=== PATIENT | female | born 1940 | race Caucasian/White ===

== ENCOUNTER 2016-09-15 12:27 | Emergency (ER) | payer MEDICARE ==
[~2016-09-15] VITALS: Ht 162.6 cm; Wt 70.0 kg
[2016-09-15 12:34] VITALS: PULSE 59; RESP 24; O2SAT 97
[2016-09-15 12:53] LABS: BASOPHILS % (AUTO) 0.6 % (0-3); EOSINOPHILS % (AUTO) 2.6 % (0-5); MONOCYTES % (AUTO) 10.9 % (4-12); Mean Corpuscular Hemoglobin 27.9 pg (27.0-35.0); Mean Corpuscular Volume 85.3 fL (81-100); NEUTROPHILS % (AUTO) 60.5 % (40-74); Platelet Count 344 bil/L (150-400)
[2016-09-15] MEDS ORDERED: SERT100T9 PO (12:54)
[2016-09-15] MEDS ORDERED: VALS40TA9 PO (12:54)
[2016-09-15] MEDS ORDERED: PANT40TA3 PO (12:54)
[2016-09-15] MEDS ORDERED: GABA-502 PO (12:54)
[2016-09-15] MEDS ORDERED: ASPI-973 PO (12:54)
[2016-09-15] MEDS ORDERED: ATOR20TA PO (12:54)
[2016-09-15] MEDS ORDERED: NYST1000 PO (12:54)
[2016-09-15] MEDS ORDERED: CYAN10008 PO (12:54)
[2016-09-15] MEDS ORDERED: ACET325T51 PO (12:54)
[2016-09-15] MEDS ORDERED: METO100T3 PO (12:54)
[2016-09-15] MEDS ORDERED: METF500T7 PO (12:54)
[2016-09-15] MEDS ORDERED: AMLO10TA3 PO ×2 (12:54→20:48)
--- NOTE | 2016-09-15 13:14 | DRSVH ---
PROCEDURE: X-RAY CHEST ONE VIEW, PORTABLE ([id number]) INDICATIONS: 76 year-old female with chest and upper abdominal pain. TECHNIQUE: One view of the chest was acquired. COMPARISON: None. FINDINGS: Surgical changes and devices: None. Lungs and pleura: No pleural effusions or pneumothorax. Lungs are clear. Mediastinum: Mediastinal contours appear normal. There is mild cardiomegaly. There is aortic athero sclerosis. Bones and chest wall: No suspicious bony lesions. Overlying soft tissues appear unremarkable. IMPRESSION: No acute cardiopulmonary disease. Dictated by: Sunday Perez M.D. on 09/15/2016 at 13:11 Approved by: Sunday Perez M.D. on 09/15/2016 at 13:12
[2016-09-15 13:31] LABS: Magnesium 1.5 mg/dL (1.6-2.6)
[2016-09-15 13:34] LABS: TROPONIN T < 0.010 ug/L (0.0-0.011)
[2016-09-15 14:26] VITALS: BP 158/66; PULSE 56; RESP 16; O2SAT 96
[2016-09-15 14:50] LABS: APPEARANCE,URINE CLOUDY (CLEAR,HAZY); COLOR,URINE DARK YELLOW (YELLOW); OCCULT BLOOD,URINE LARGE (NEGATIVE); UROBILINOGEN,URINE NORMAL (NORMAL)
[2016-09-15 15:32] VITALS: BP 136/52; PULSE 56; RESP 17; O2SAT 97
--- NOTE | 2016-09-15 16:19 | DRSVH ---
PROCEDURE: CT ABDOMEN AND PELVIS WITH CONTRAST ([id number]) INDICATIONS: 76 year-old female with leukocytosis and upper abdominal pain. TECHNIQUE: After the administration of intravenous contrast, 5 mm thick sections acquired from the diaphragm to the symphysis. 5 mm coronal and sagittal reformats were acquired. For radiation dose reduction, the following was used: automated exposure control, adjustment of mA and/or kV according to patient siz e. COMPARISON: None. FINDINGS: Image quality: Excellent. ABDOMEN: Lung bases: Lung bases are clear. There is mild cardiomegaly. Solid organs: Liver and spleen are normal in size and enhancement. Gallbladder contains multiple ti ny dependent gallstones. Biliary system is non dilated. Pancreas enhances normally, with localized peripancreatic inflammatory fat stranding extending into the right anterior pararenal space. No adre nal nodules. Kidneys demonstrate normal size, with mild right and moderate left hydronephrosis. 2.1 cm posterior right renal cortical simple cyst is incidentally noted. 3 nonobstructing right renal sto kinga are present, measuring up to 8 mm. 5 nonobstructing left renal stones are also present, measuring up to 4 mm. 11 x 9 x 8 mm stone is situated at the left ureteropelvic junction, as well as adjacent 4 mm stone. No right ureteral stones. Peritoneum and bowel: Bowel loops demonstrate normal wall thickness and caliber. There is moderate sigmoid colon diverticulosis. No free fluid or air. Nodes and vessels: No retroperitoneal or mesenteric adenopathy by size criteria. Aorta and inferior vena cava are normal in size, with moderate aortoiliac atherosclerosis. Miscellaneous: No ventral hernias. PELVIS: Genitourinary: Bladder wall thickness is normal. Uterus and ovaries are normal in size. Miscellaneous: No inguinal hernias or adenopathy. Bones: No suspicious bony lesions. No vertebral body compression fractures. Bilateral L5 pars defe cts are present, without associated spondylolisthesis. There is moderate mid and lower lumbar spine d isc degeneration. IMPRESSION: 1. Findings consistent with localized mild acute pancreatitis involving the pancreatic head, along wi th numerous small dependent gallstones. No peripancreatic fluid collections. 2. 11 x 9 x 8 mm stone at the left ureteropelvic junction causes moderate left hydronephrosis, along with an adjacent 4 mm stone. Several additional nonobstructing left renal stones measure up to 4 mm. 3. Mild right hydronephrosis as well, with normal right ureteral caliber consistent with right ureter opelvic junction stricture, without superimposed ureteral stones. Several nonobstructing right renal stones measure up to 8 mm. 4. Moderate sigmoid colon diverticulosis. 5. Bilateral L5 pars defects, without associated spondylolisthesis. Dictated by: Sunday Perez M.D. on 09/15/2016 at 16:03 Approved by: Sunday Perez M.D. on 09/15/2016 at 16:17
--- NOTE | 2016-09-15 17:02 | ED.REPORT ---
HPI-Abd Pain F 40 and Over Date of Service Sep 15, 2016 ED Provider: Carroll Nayak MD Abbey is a 76-year-old female with a history of mild dementia presenting with chief complaint of abdominal pain. She reports a roughly 1/2 hour episode of intense epigastric abdominal pain this morning. Her friend called EMS. Pain began to resolve in the ambulance and was absent by the time she arrived at the emergency department. Admits nausea. She has also noted blood in the toilet after urinating, which she suspects may be secondary to a cervical polyp. She has a history of these. Denies vomiting, diarrhea, melena, hematochezia, fever , urinary symptoms, chest pain, palpitations, cough, wheeze, shortness of breath. Nursing Notes Stated Complaint: EPIGASTRIC PAIN Chief Complaint: Female Abdominal Pain Nursing Notes Reviewed: Yes Allergies: Coded Allergies: No Known Allergies (Unverified , 09/15/16) Scheduled Amlodipine (Amlodipine) 10 Mg Tablet 10 MG PO DAILY Amlodipine (Amlodipine) 10 Mg Tablet 10 MG PO DAILY Aspirin (Aspirin) 81 Mg Tablet 81 MG PO DAILY Atorvastatin (Lipitor) 20 Mg Tablet 20 MG PO DAILY Cyanocobalamin (Vitamin B-12) (Vitamin B-12) 1,000 Mcg Tablet 1,000 MCG PO DAILY Gabapentin (Gabapentin) 300 Mg Capsule 300-600 MG PO DAILY Metformin ER (Metformin ER) 500 Mg Tablet 500 MG PO DAILY Metoprolol Tartrate (Metoprolol Tartrate) 100 Mg Tablet 100 MG PO BID Nystatin (Nystatin) 100,000 Unit/1 Ml Oral.susp 1 APPLIC PO BID Pantoprazole DR (Pantoprazole DR) 40 Mg Tablet.dr 40 MG PO DAILY Sertraline HCl (Sertraline) 100 Mg Tablet 100 MG PO DAILY Valsartan (Valsartan) 40 Mg Tablet 40 MG PO DAILY Scheduled PRN Acetaminophen (Acetaminophen) 325 Mg Tablet 325 MG PO Q4H PRN PRN For Pain General Time Seen by MD: 15:11 Chief Complaint Abdominal pain Sudden in Onset?: Yes Past Medical History Past Medical History Mild dementia IBS Review of Systems General: Denies fever, chills, malaise. HEENT: Denies congestion, headache, sore throat. Respiratory: Denies dyspnea, cough, shortness of breath, wheezing. Cardiovascular: Denies chest pain, palpitations. Gastrointestinal: Admits abdominal pain, denies vomiting, diarrhea Genitourinary: Denies frequency, urgency, dysuria, hematuria. Otherwise as noted in HPI. Physical Exam General: Well appearing, well developed, well nourished, no acute distress. Head: Atraumatic, normocephalic. Eyes: No scleral icterus or injection. No discharge. Vision grossly intact. ENT: Voice clear, hearing grossly intact. Respiratory: Regular rate and rhythm. Breath sounds present, clear to auscultation and equal bilaterally. No respiratory distress. No increased work of breathing, speaks in complete sentences. Cardiovascular: Regular rate and rhythm, without murmur, gallop or rub. No pedal edema. Gastrointestinal: Abdomen moderately tender in right upper quadrant without guarding or rebound. Bowel sounds normoactive. Skin: Warm and dry. Neurological: Grossly nonfocal. Psychological: Alert and oriented. Speech appropriate, linear and logical. Behavior appropriate. Vital Signs Vital Signs (First) Date Time Temp Pulse Resp B/P Pulse Ox O2 Delivery O2 Flow Rate FiO2 09/15/16 12:34 36.7 59 24 97 Room Air 09/15/16 14:26 158/66 Elevated blood pressure Interpretation & Diagnostics Lab Results Interpretation Result Diagram: 09/15/16 1248 09/15/16 1248 Test 09/15/16 12:48 09/15/16 14:37 09/15/16 17:25 09/15/16 18:10 White Blood Count 16.1th/mm3 (3.8-10.1) Red Blood Count 4.91mil/mm3 (3.90-5.20) Hemoglobin 13.7g/dL (12.0-15.6) Hematocrit 41.9% (35.0-46.0) Mean Corpuscular Volume 85.3fL (81-100) Mean Corpuscular Hemoglobin 27.9pg (27.0-35.0) Mean Corpuscular Hemoglobin Concent 32.7% (32.0-37.0) Red Cell Distribution Width 15.5% (12.3-15.4) Platelet Count 344bil/L (150-400) Neutrophils (%) (Auto) 60.5% (40-74) Lymphocytes (%) (Auto) 25.1% (14-46) Monocytes (%) (Auto) 10.9% (4-12) Eosinophils (%) (Auto) 2.6% (0-5) Basophils (%) (Auto) 0.6% (0-3) Sodium Level 142mEq/L (134-144) Potassium Level 3.9mEq/L (3.5-5.2) Chloride Level 102mEq/L (97-108) Carbon Dioxide Level 22mmol/L (18-29) Blood Urea Nitrogen 20mg/dL (8-27) Creatinine 0.55mg/dL (0.57-1.00) Estimat Glomerular Filtration Rate 154mL/min (>59) Glucose Level 153mg/dL (60-99) Calcium Level 10.6mg/dL (8.5-10.1) Magnesium Level 1.5mg/dL (1.6-2.6) Total Bilirubin 1.0mg/dL (0.0-1.2) Aspartate Amino Transf (AST/SGOT) 37U/L (0-50) Alanine Aminotransferase (ALT/SGPT) 24U/L (0-32) Alkaline Phosphatase 88U/L (25-165) Total Protein 7.5g/dL (6.4-8.4) Albumin 4.2g/dL (3.4-5.0) Urine Color Dark yellow (YELLOW) Urine Appearance Cloudy (CLEAR,HAZY) Urine pH 7.0 (5.0-8.0) Urine Specific [place] 1.015 (1.003-1.035) Urine Protein Tracemg/dL (NEG,TRACE) Urine Glucose (UA) Negativemg/dL (NEGATIVE) Urine Ketones Negativemg/dL (NEGATIVE) Urine Occult Blood Large (NEGATIVE) Urine Nitrite Negative (NEGATIVE) Urine Bilirubin Negative (NEGATIVE) Urine Urobilinogen Normalmg/dL (NORMAL) Urine Leukocyte Esterase Trace (NEGATIVE) Urine RBC 11-50/hpf (0-2) Urine WBC 6-10/hpf (0-5) Urine Epithelial Cells Few/hpf (NONE-MOD) Urine Crystals None seen (NONE SEEN) Urine Bacteria Few/hpf (NONE-FEW) Urine Hyaline Casts None/lpf (NONE) Urine Granular Casts None seen (NONE SEEN) Urine Waxy Casts None seen (NONE SEEN) Urine Red Blood Cell Casts None seen (NONE SEEN) Urine White Blood Cell Casts None seen (NONE SEEN) Urine Mucus None seen (None Seen) Urine Trichomonas None seen (NONE SEEN) Urine Yeast None (NONE SEEN) Urinalysis Comment None Urine Culture Reflexed Indicated Lactic Acid Level 2.5mmol/L (0.4-2.0) Troponin T < 0.010ug/L (0.0-0.011) Lipase 1906U/L (13-60) Hold Urine Received (Received) X-Ray Chest Interpretation Chest Xray Interpretation: PROCEDURE: X-RAY CHEST ONE VIEW, PORTABLE ([id number]) INDICATIONS: 76 year-old female with chest and upper abdominal pain. IMPRESSION: No acute cardiopulmonary disease. Interpretation / Wet Read by: Interpret - Radiologist, [place] - [facility] CT Abd / Pelvis Interpretation PROCEDURE: CT ABDOMEN AND PELVIS WITH CONTRAST ([id number]) INDICATIONS: 76 year-old female with leukocytosis and upper abdominal pain. IMPRESSION: 1. Findings consistent with localized mild acute pancreatitis involving the pancreatic head, along with numerous small dependent gallstones. No peripancreatic fluid collections. 2. 11 x 9 x 8 mm stone at the left ureteropelvic junction causes moderate left hydronephrosis, along with an adjacent 4 mm stone. Several additional nonobstructing left renal stones measure up to 4 mm. 3. Mild right hydronephrosis as well, with normal right ureteral caliber consistent with right ureteropelvic junction stricture, without superimposed ureteral stones. Several nonobstructing right renal stones measure up to 8 mm. 4. Moderate sigmoid colon diverticulosis. 5. Bilateral L5 pars defects, without associated spondylolisthesis. 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 Also recent history of either hematuria or vaginal bleeding. Patient denies other symptoms. Abdomen is nontender on initial assessment, physical exam is generally benign with normal vital signs. CBC, CMP, lactate, troponin, EKG, CXR are ordered. CBC reveals a leukocytosis of 16.1. CMP reveals a normal nonfasting glucose, creatinine is 0.55, calcium slightly high at 10.6 and magnesium slightly low at 1.5. Transaminases are normal as is alkaline phosphatase. Troponin is normal. While awaiting results, the patient's pain returns. I discussed the case with Dr. Nayak who met with and examined the patient. This time her right upper quadrant is moderately tender. CT as well as lactic acid, repeat troponin, and lipase are ordered. Lactic acid is 2.5. Troponin is normal and lipase is 1906. CT has findings consistent with mild acute pancreatitis and numerous small dependent gallstones. Left kidney stone is noted causing moderate left hydronephrosis as well as some additional nonobstructing stones. There is mild right hydronephrosis with nonobstructing renal stones. Diverticulosis is also noted. Discussed the case again with Dr. Nayak, we agree she is a candidate for admission. Discussed case with Dr. Alcocer who will consult. However the patient prefers to transfer to [facility], as this is closer to home and her primary care provider. Patient is transferred to [facility] in stable condition via S. Consultation : Referral / Consult Name: Tonio Alcocer MD Note: GI feels that this presentation is consistent with symptomatic cholelithiasis, possibly acute pancreatitis. Awaiting lipase. He will consult if admitted, will see in clinic next week if discharged. Discharge & Departure Primary Impression: Acute pancreatitis Pancreatitis type: unspecified pancreatitis type Acute pancreatitis complication: unspecified Qualified Code: K85.90 - Acute pancreatitis without necrosis or infection, unspecified Additional Impression: Nephrolithiasis Disposition: Transfer, Acute Care Facility Referrals: OTHER,PHYSICIAN (PCP) (Family) EDSupervising Provider for APC: Carroll Nayak MD Attending Statement I saw the patient with the PA. I agree with the plan and documentation noted above. Briefly, this is a 76-year-old female presenting to the ED for evaluation of abdominal pain. Her laboratory studies are consistent with acute pancreatitis. She will be transferred for further management and evaluation per her request. Lito Oneil PA-C Sep 15, 2016 17:02 Carroll Nayak MD Sep 16, 2016 00:51
[2016-09-15 17:33] VITALS: BP 130/59; PULSE 58; RESP 17; O2SAT 97
[2016-09-15 17:55] LABS: TROPONIN T < 0.010 ug/L (0.0-0.011)
[2016-09-15 18:16] LABS: Lipase 1906 U/L (13-60)
[2016-09-15] MEDS ORDERED: HYDROmorphone 0.5 mg/0.5 mL iSecure Syringe IVPUSH STA (18:25)
[2016-09-15 20:44] VITALS: BP 154/69; PULSE 53; RESP 17; O2SAT 97
[2016-09-15] MEDS ORDERED: Ondansetron 2 mg/mL 2 mL Inj IVPUSH PRN (21:45)
[2016-09-15] MEDS ORDERED: Insulin LISPRO Low-Dose Scale SUBQ SCH (22:00)
[2016-09-15] MEDS ORDERED: HYDROmorphone 0.5 mg/0.5 mL iSecure Syringe IVPUSH ONE (22:30)
[2016-09-15 22:43] VITALS: BP 137/68; PULSE 53; RESP 17; O2SAT 97
[2016-09-16] MEDS ORDERED: MeTOProlol 1 mg/mL 5 mL Inj IV SCH (06:00)
== END 2016-09-15 22:45 | disposition short-term general hospital (02) ==
LOC: SED 12:27 → EDBD 12:27 → SED 22:45
DX: K85.90 Acute pancreatitis without necrosis or infection, unspecified (principal); N20.0 Calculus of kidney; F03.90 Unspecified dementia, unspecified severity, without behavioral disturbance, psychotic disturbance, mood disturbance, and anxiety; Z79.82 Long term (current) use of aspirin; Z79.84 Long term (current) use of oral hypoglycemic drugs
CPT/HCPCS: 36415; 71010; 74177; 80053; 81000; 82948; 83605; 83690; 83735; 84484; 85025; 87086; 87088; 93005; 96374; 96375; 96376; 99285; J1170; J2270; J2405; Q9967